=== PATIENT | female | born 1970 ===

== ENCOUNTER 2023-10-06 02:23 | Outpatient (CLI) | payer MEDICAID, SELFPAY ==
--- NOTE | 2023-10-06 14:15 | DI.US_ITS ---
Exam(s) US SOFT TISS EXTREMITY/GROIN EXAM: US HERNIA CLINICAL HISTORY: INGUINAL LYMPHADENOPATHY,R59.0.LOCALIZED ENLARGED LYMPH NODES. TECHNIQUE: Ultrasound was performed using standard protocol. COMPARISON: No exams were available for comparison FINDINGS: Dedicated ultrasound of the area of concern in the right groin area below the level of the inguinal l igament was performed. Opposite side was scanned for comparison. Medial to the right femoral artery and vein there is a cystic structure which measures approximately 3 cm length by 1 cm wide by 1 cm AP.. It appears isolated without a communication channel 2 level ab ove the inguinal ligament. There is no color flow within this structure (patient denies prior ipsila teral arteriogram). There is no obvious bowel loop within this structure. IMPRESSION: Abnormal 3 x 1 x 1 cm cystic structure corresponding to the palpable finding. Recommend follow-up CT scan to determine its relationship to the pelvic cavity/inguinal canal. DATA REPOSITORY:
--- NOTE | 2023-10-06 15:05 | DI.MAMMO_ITS ---
Exam(s) MAMMO SCREENING EXAM: MAMMO SCREENING CLINICAL HISTORY: SCREENING TECHNIQUE: Bilateral full field digital CC and MLO mammographic images were obtained with 3D tomosyn thesis and utilizing computer aided detection (CAD). COMPARISON: Available for comparison. FINDINGS: Masses/Architectural Distortion: There again seen 2 well-circumscribed partially calcified nodules in the right breast. The largest is at the 12 o'clock position. These likely reflect fibroadenomas. The patient reports prior biopsy of the 12 o'clock lesion in 2015. No new nodules are seen. No area s of architectural distortion are present. Microcalcifications: No suspicious pleomorphic-type are seen. Stable benign type calcifications are s een in both breasts. Skin Thickening/Nipple Retraction: None. IMPRESSION: 1. No significant interval change with no specific features of malignancy noted. 2. Unless there is more urgent need, screening mammography is recommended, as per [employer] guidelines. BI-RADS Category 2 - Benign Findings Breast Density - Category C - Heterogeneously dense Breast density category C or D implies that the patient has dense breast tissue. Dense breast tissue is very common and is not abnormal but dense breast tissue can make it harder to find cancer on a ma mmogram. Also, dense breast tissue may increase their breast cancer risk. This information about the result of the mammogram report was provided to the patient to raise their awareness. Use this report when you speak with the patient about their risks for breast cancer, which includes their family hist ory. At that time, you may recommend for more screening tests (Ultrasound or MRI) as they might be us eful based on their risk. A negative radiographic report should not delay biopsy if a dominant or clinically suspicious mass is present. Up to ten percent of cancers are not identified on mammography. A negative report may reinforce clinical impression. Adenosis and dense breasts may obscure an underlying neoplasm. False positive reports average 6 to 10%. Patient will receive a letter notifying them of these results.
== END 2023-10-06 02:43 ==
LOC: DI 02:23
PROVIDERS: Visit Provider Family Medicine
DX: R59.0 Localized enlarged lymph nodes (principal)
CPT/HCPCS: 76882; 77063; 77067

== ENCOUNTER 2023-12-15 01:20 | Outpatient (CLI) | payer MEDICAID, SELFPAY ==
[2023-12-15] MEDS: Barium Sulfate 2% W/V-Creamy Vanilla Smoothie 450 ML BTL PO (07:17)
[2023-12-15] MEDS: Barium Sulfate 2% W/V-Berry Smoothie 450 ML BTL PO (07:17)
[2023-12-15] MEDS: Normal Saline - Diluent 50 ML VIAL IJ (09:08)
[2023-12-15] MEDS: Omnipaque 350 MG/ML 500 ML BTL-Imaging package 71 ML IJ (09:09)
--- NOTE | 2023-12-15 09:17 | DI.CT_ITS ---
Exam(s) CT ABDOMEN PELVIS W EXAM: CT ABDOMEN PELVIS W CLINICAL HISTORY: Other intraabdominal and pelvic swelling, mass and lump, R19.09 TECHNIQUE: Imaging Protocol: Axial computed tomography images with coronal and sagittal reformatted images were created and reviewed. CONTRAST MATERIAL: Intravenous: Omnipaque 350 Contrast volume:71 mL Oral: Yes COMPARISON: No exams were available for comparison FINDINGS: ABDOMEN: Lung Bases: Normal where visualized. Liver: Normal density. No measurable mass. There are few tiny hypodensities in the liver. They are t oo small for further characterization but likely reflect small cysts. Portal, Superior Mesenteric, and Splenic Veins: Unremarkable. Gallbladder and Biliary Tract: No radiodense calculus or dilation. Pancreas: Normal density, no abnormal calcifications or inflammatory process. Spleen: Normal. Adrenals: No masses seen. Kidneys: Normal size, contour and axis. There is a 2 mm nonobstructing stone in the upper pole of the right kidney. No masses seen. Abdominal Aorta: Abdominal portion non-dilated. Minimal atherosclerotic calcification is present. Bowel: No obstruction or bowel wall thickening. There is stool throughout the colon suggesting consti pation. There is no evidence of appendicitis. Peritoneal Cavity: No ascites, collection or mesenteric inflammatory response. No free air. Lymph Nodes: Within normal limits. Bones: Within normal limits for the patient's age. There is grade 2 spondylolisthesis of L5 on S1. There is bilateral spondylolysis of L5. The findings do result in marked bilateral L5-S1 neural fora cornel stenosis. Soft Tissues: There is a small fluid containing right inguinal hernia. PELVIS: Bladder: Symmetric distention, no gross wall thickening. Reproductive Organs: The uterus is enlarged and heterogeneous with several masses present most consis tent with fibroids. Lymph Nodes: Within normal limits. Bones: Within normal limits for the patient's age. IMPRESSION: 1. Enlarged heterogeneous uterus suspicious for multiple uterine fibroids. Pelvic ultrasound should be considered for further evaluation. 2. Right nephrolithiasis. No hydronephrosis. 3. Large amount of stool throughout the colon suggesting constipation. 4. At L5-S1, there is grade 2 spondylolisthesis of L5 on S1 secondary to bilateral spondylolysis of L 5. The findings result in marked bilateral neural foraminal stenosis at this level. RADIATION DOSE DELIVERED: 224.5mGy.cm Total DLP DATA REPOSITORY: All CT scans at this facility are submitted to the National Radiology Data Registry (NRDR) Dose Index Registry (DIR) with the [employer] ([employer]). RADIATION OPTIMIZATION: All CT scans at this facility use at least one of these dose optimization te chniques: automated exposure control; mA and/or kV adjustment per patient size (includes targeted exa ms where dose is matched to clinical indication); or iterative reconstruction.
== END 2023-12-15 01:40 ==
PROVIDERS: Visit Provider Family Medicine
DX: M47.817 Spondylosis without myelopathy or radiculopathy, lumbosacral region (principal); D25.9 Leiomyoma of uterus, unspecified
CPT/HCPCS: 74177

== ENCOUNTER 2024-01-11 02:17 | Outpatient (CLI) | payer MEDICAID, SELFPAY ==
--- NOTE | 2024-01-11 | DI.US_ITS ---
Exam(s) US PELVIS TRANSVAGINAL EXAM: US PELVIS TRANSVAGINAL CLINICAL HISTORY: LEIOMYOMA OF UTERUS D25.9,F/U ABNL CT TECHNIQUE: Transabdominal imaging was performed using standard protocol. The patient did not jose antonio ate transvaginal scanning due to pain. COMPARISON: CT CT ABDOMEN PELVIS W from 12/15/2023 FINDINGS: The bladder was not well distended. UTERUS: 9.6 x 6.7 x 7.7 cm. Endometrium: Not visualized Myometrium: A discrete fibroid is not identified separate from the uterus. Findings could represent a single large fibroid versus multiple fibroids. This is not well delineated on this transabdominal examination. Cervix: Not well seen. OVARIES: Not visualized on the current exam. Appeared normal on prior CT. CUL-DE-SAC: Free fluid: None. IMPRESSION: 1. Limited exam due to transabdominal scanning and suboptimal bladder distension. 2. The ovaries were not visualized. DATA REPOSITORY:
== END 2024-01-11 02:37 ==
PROVIDERS: PCP Family Medicine; Visit Provider Family Medicine
DX: D25.9 Leiomyoma of uterus, unspecified (principal)
CPT/HCPCS: 76830; 76856